=== PATIENT | male | born 1950 | race Hispanic/Latino ===

== ENCOUNTER → 2022-03-15 13:00 | Outpatient (CLI) | payer MEDICARE, SELFPAY ==
[2022-03-15 15:08] LABS: Prostate Specific Antigen < 0.064 ng/mL (0.10-4.00)
== END ==
PROVIDERS: Referring Provider Urology; Visit Provider Urology
DX: R30.0 Dysuria (principal); R33.9 Retention of urine, unspecified; R82.81 Pyuria; Z85.46 Personal history of malignant neoplasm of prostate; Z90.79 Acquired absence of other genital organ(s); Z77.22 Contact with and (suspected) exposure to environmental tobacco smoke (acute) (chronic); Z87.898 Personal history of other specified conditions
CPT/HCPCS: 36415; 51798; 81002; 84153; 87077; 87086; 87186; 99214

== ENCOUNTER → 2022-04-27 09:15 | Outpatient (CLI) | payer MEDICARE, SELFPAY | PROVIDERS: Visit Provider Urology | DX: R30.0 Dysuria (principal) | CPT/HCPCS: 87077; 87086; 87185; 87186 ==

== ENCOUNTER 2022-05-18 11:19 | Day surgery (SDC) | payer MEDICARE, SELFPAY ==
[2022-05-18] VITALS (7 sets, daily range): BP systolic 110–167; BP diastolic 66–78; PULSE 64–72; RESP 14–17; TEMP 36.3–36.6; O2SAT 96–99; BMI 30.9
--- NOTE | 2022-05-18 13:52 | SUR.OPER ---
Supine on padded OR bed, head on pillow, arms secured on padded arm boards at <90 degrees abduction, legs uncrossed, safety belt at thigh, tape over blanket over lower legs.
--- NOTE | 2022-05-18 13:56 | PM.PREOP ---
Pre-operative Note COVID-19 COVID-19 status: Negative Result date/Date tested (Pos, Neg/Pending): 05/15/22 Criteria for continued procedure: Delay expected to result in less-positive ultimate med/surg outcome and Non-surgical alternatives not available or appropriate per current SOC Interval Note History & Physical reviewed/Exam performed by Physician: Yes Changes to H&P: No
[2022-05-18] MEDS: AMPICILLIN/SULBACTAM 3 GM 3 GM in SODIUM CHLORIDE 0.9% 100 ML IV (14:05)
--- NOTE | 2022-05-18 14:48 | PM.OP.1 ---
Procedure & Clinicians Procedure: Cystoscopy with bladder neck dilation and and direct vision transurethral incision of bladder neck with placement of Veronica catheter over wire. Same procedure as scheduled: Yes Indications: Is a very pleasant gentleman who had a radical prostate[place]. He has now developed obstructive complaints and was found to have a very tight anastomotic and or bladder neck contracture. He presents this time to open the bladder neck up. Surgeon: Ronn Yun Click Yes if Unassisted: Yes Anesthesia Type: General Operative Notes Findings: Findings: Urethra normal to the anastomosis. Prostate is surgically absent at the anastomosis there is a very tight rigid bladder neck contracture. Within the bladder there was severe trabeculation cellules and small diverticula. Ureteral orifices were not observed. There were no mucosal lesions or tumors noted. A 20 [place] 5 cc [place] tip catheter was left in place with 10 cc in the balloon. Closure Type: not applicable Specimen(s): none sent Applied: catheter (Twenty [place] tip catheter) Estimated Blood Loss (mL): 5 Blood products transfused: none Procedure in detail: Procedure in detail: After informed consent was obtained, the patient was identified, and brought to the operating room. Patient was then placed in a supine position on the table for anesthesia was induced to maintain. After ensuring an adequate level of anesthesia the patient was transitioned to the lithotomy position where he was prepped, draped and prepared for transurethral procedure. After prepping draping and assuring an adequate level anesthesia as well as time-out a 21 [place] cystoscope was passed through the urethra into the level of the anastomotic stricture. An Amplatz Ultra Stiff guidewire was then passed through the narrowing and curled within the bladder. The scope was then backed out and Cook S dilators were used in a coaxial fashion over the wire to dilate the anastomosis from 12-20 [place]. With this done attempt was made to pass the cystoscope it would not pass through the contracture. The direct vision urethra tome was then loaded onto the wire and advanced to the level of the anastomotic contracture and scar tissue which was incised at the 12:00 p.m. until the scope passed easily into the bladder. Once in the bladder cystoscopy was performed. The scope was backed out the wire was left in place. A and the [place] tip catheter was passed over the wire and [place] catheter into the bladder with the balloon was filled with 10 cc of sterile water and the catheter was placed to gravity drainage the [place] catheter and the wire were removed. The patient was then awakened having tolerated the procedure well, there were no complications the patient will be transferred to the postanesthesia care unit. Complications: none Post-operative Condition: stable Disposition: PACU Plan for aftercare: Patient to be discharged to home to follow-up of to my office in approximately 10-14 days. He will then be back in approximately and another 7-10 days for cystoscopy and catheter removal.
--- NOTE | 2022-05-18 15:41 | SUR.PHASEII ---
1530: Pt &Ox4, denies any distress and ready to discharge home. Instructions reviewed with patient and son, demonstration of changing rivera from bed bag to leg bag, leg bag draining well, urine light pink tinge. Pt left unit with all personal belongings via w/c to ER exit where son will transport pt home.
== END 2022-05-18 15:35 | disposition home or self-care (01) ==
PROVIDERS: Referring Provider Urology; Visit Provider Urology
PROC: 0TBC8ZZ Excision of Bladder Neck, Via Natural or Artificial Opening Endoscopic (ICD-10-PCS; CPT 52500; principal; 2022-05-18 13:15)
DX: N32.0 Bladder-neck obstruction (principal); N32.89 Other specified disorders of bladder; N32.3 Diverticulum of bladder; R33.9 Retention of urine, unspecified; I10 Essential (primary) hypertension; Z85.46 Personal history of malignant neoplasm of prostate; Z90.79 Acquired absence of other genital organ(s); N99.89 Other postprocedural complications and disorders of genitourinary system; Z77.22 Contact with and (suspected) exposure to environmental tobacco smoke (acute) (chronic)
CPT/HCPCS: 51040; 52281; 82962; J0295; J1100; J1885; J2250; J2405; J2704; J3010

== ENCOUNTER → 2022-07-12 14:34 | Outpatient (CLI) | payer MEDICARE, SELFPAY | PROVIDERS: Visit Provider Urology | DX: R33.9 Retention of urine, unspecified (principal); N99.89 Other postprocedural complications and disorders of genitourinary system; N39.3 Stress incontinence (female) (male); N32.0 Bladder-neck obstruction; Z85.46 Personal history of malignant neoplasm of prostate; Z90.79 Acquired absence of other genital organ(s); R82.81 Pyuria; R31.29 Other microscopic hematuria | CPT/HCPCS: 81002; 87077; 87086; 87186 ==

== ENCOUNTER → 2022-09-12 10:49 | Outpatient (CLI) | payer MEDICARE, SELFPAY | PROVIDERS: Visit Provider Urology | DX: N99.89 Other postprocedural complications and disorders of genitourinary system (principal); R31.29 Other microscopic hematuria; N32.0 Bladder-neck obstruction; N39.3 Stress incontinence (female) (male); R33.9 Retention of urine, unspecified; R82.81 Pyuria; Z85.46 Personal history of malignant neoplasm of prostate; Z87.440 Personal history of urinary (tract) infections; Z90.79 Acquired absence of other genital organ(s) | CPT/HCPCS: 51798; 81002; 87077; 87086; 87186; 99214 ==

== ENCOUNTER → 2023-03-28 14:18 | Outpatient (CLI) | payer MEDICARE, SELFPAY ==
[2023-03-28 15:06] LABS: BUN Creatinine Ratio 13.2 (6-22); Blood Urea Nitrogen 15 mg/dL (9-20); Calcium 8.9 mg/dL (8.4-10.2); Carbon Dioxide 31 mmol/L (22-32); Chloride 102 mmol/L (98-107); Estimated Glomerular Filt Rate > 60 mL/min (>60); Glucose 149 mg/dL (80-110); HEMOLYSIS < 15 (0-50); Potassium 4.1 mmol/L (3.4-5.1); Sodium 141 mmol/L (137-145)
== END ==
PROVIDERS: Referring Provider Urology; Visit Provider Urology
DX: N32.0 Bladder-neck obstruction (principal); N39.3 Stress incontinence (female) (male); R31.29 Other microscopic hematuria; R33.9 Retention of urine, unspecified; N99.89 Other postprocedural complications and disorders of genitourinary system; Z85.46 Personal history of malignant neoplasm of prostate; Z90.79 Acquired absence of other genital organ(s); Z77.22 Contact with and (suspected) exposure to environmental tobacco smoke (acute) (chronic)
CPT/HCPCS: 36415; 51798; 80048; 81002; 87086; 99214

== ENCOUNTER → 2023-04-05 11:35 | Outpatient (CLI) | payer MEDICARE, SELFPAY ==
--- NOTE | 2023-04-05 | DI.CT.S_ITS ---
PROCEDURE: CT IVP A/P W/WO INDICATIONS: Other microscopic hematuria TECHNIQUE: Optional 5 mm thick noncontrast images acquired from the diaphragm to the symphysis pubis. After the administration of intravenous contrast, 5 mm thick images acquired from the diaphragm to the symphysis pubis after a 10-minute delay. 2 mm thick coronal and sagittal reformats were then performed of the kidneys and ureters. For radiation dose reduction, the following was used: automated exposure control, adjustment of mA and/or kV according to patient size. COMPARISON: None. FINDINGS: Image quality: Excellent. Lung bases: Lung bases are clear. Heart size is normal. Urinary system: Both kidneys are normal in size, without hydronephrosis or nephrolithiasis on pre-contrast images. No perinephric fat stranding. Bilateral renal cystic lesions, most of which contain minimal to no internal complexity. Along the posterior/lateral margin of the left kidney, there is a 9.3 cm cystic lesion with mildly thickened internal septations but no definite nodularity. There is normal bilateral renal enhancement. Renal calyces appear normal in morphology when filled with contrast. Opacified portions of both ureters demonstrate normal caliber. Trabeculated bladder wall. Liver: No solid mass. Cystic lesions are present. Gallbladder: No gallstones or biliary dilation. Spleen: Normal size. Pancreas: No ductal dilation. Adrenal glands: No adrenal nodules. Peritoneum and bowel: Bowel loops demonstrate normal wall thickness and caliber. No free fluid or air. Nodes and vessels: No retroperitoneal or mesenteric adenopathy by size criteria. Aorta and inferior vena cava are normal in size. Abdominal wall: Fat containing umbilical hernia. Pelvis: No pathologic free pelvic fluid. Left inguinal hernia containing a short segment nonobstructed large bowel. prostatectomy. Bones: No suspicious bony lesions. No vertebral body compression fractures. IMPRESSION: No nephrolithiasis or filling defects within the opacified renal collecting system or ureters. Trabeculated bladder wall. Bladder mass difficult to exclude in this setting. Consider direct visualization with cystoscopy. 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 Recommend six-month follow-up with single phase contrast CT or MRI (renal mass protocol). Left inguinal hernia containing a short segment of nonobstructed large bowel. Dictated by: Ovidio Hagan M.D. on 04/05/2023 at 13:57 Approved by: Ovidio Hagan M.D. on 04/05/2023 at 14:06
== END ==
PROVIDERS: Referring Provider Urology; Visit Provider Urology
DX: R31.29 Other microscopic hematuria (principal); Z85.46 Personal history of malignant neoplasm of prostate; N28.89 Other specified disorders of kidney and ureter; K40.90 Unilateral inguinal hernia, without obstruction or gangrene, not specified as recurrent
CPT/HCPCS: 74178

== ENCOUNTER → 2023-11-13 13:42 | Outpatient (CLI) | payer MEDICARE, SELFPAY ==
--- NOTE | 2023-11-13 13:44 | DI.CT.S_ITS ---
PROCEDURE: CT ABDOMEN RENAL PROTOCOL INDICATIONS: Follow-up Bosniak 2 F cyst TECHNIQUE: Optional 5 mm thick noncontrast images acquired from the diaphragm to the iliac crests. After the administration of intravenous contrast, 5 mm thick images again acquired from the diaphragm to the iliac crests in the arterial and urographic phases. 5 mm thick coronal and sagittal reformats were then acquired. For radiation dose reduction, the following was used: automated exposure control, adjustment of mA and/or kV according to patient size. COMPARISON: [facility], CT, CT IVP A/P W/WO, 04/05/2023, 11:50. FINDINGS: Image quality: Diagnostic. Kidneys and Ureters: Stable left-sided renal cyst with mildly thickened internal septations and wall. The cyst measures up to 9.6 cm, unchanged from prior. Additional large bilateral renal cysts with no significant internal complexity. OTHER: Lower chest: Moderate hiatal hernia, with fluid in the distal esophagus; findings suggestive of reflux. Liver: No solid mass. Stable hepatic cysts. Gallbladder: No radiopaque gallstones or wall thickening. Biliary ducts: No biliary dilation. Pancreas: No ductal dilation. Spleen: Size is within normal limits. Adrenal Glands: No adrenal nodules. Stomach and Bowel: Normal colonic caliber, without significant wall thickening. Peritoneum: No abnormal intraperitoneal fluid. No free air. Ventral Wall: No hernia. Abdominal Nodes: No retroperitoneal or mesenteric adenopathy by size criteria. Vessels: Aorta and inferior vena cava are normal in size. Bones: No aggressive osseous abnormality. IMPRESSION: Stable left Bosniak 2 F cystic mass. Follow-up according to ordering provider's discretion. Dictated by: Ovidio Hagan M.D. on 11/13/2023 at 16:22 Approved by: Ovidio Hagan M.D. on 11/13/2023 at 16:27
[2023-11-13 14:11] LABS: BUN Creatinine Ratio 17.6 (6-22); Blood Urea Nitrogen 18 mg/dL (9-20); Estimated Glomerular Filt Rate > 60 mL/min (>60)
== END ==
LOC: CT 13:43
PROVIDERS: Referring Provider Urology; Visit Provider Urology
DX: N28.1 Cyst of kidney, acquired (principal)
CPT/HCPCS: 36415; 74170; 82565; 84520; Q9967

== ENCOUNTER → 2024-12-14 11:12 | Outpatient (CLI) | payer MEDICARE, SELFPAY ==
[2024-12-14 11:57] LABS: BUN Creatinine Ratio 21.8 (6-22); Blood Urea Nitrogen 24 mg/dL (9-20); Calcium 9.4 mg/dL (8.4-10.2); Carbon Dioxide 26 mmol/L (22-32); Chloride 105 mmol/L (98-107); Estimated Glomerular Filt Rate > 60 mL/min (>60); Glucose 106 mg/dL (80-110); HEMOLYSIS < 15 (0-50); Potassium 4.2 mmol/L (3.4-5.1); Sodium 141 mmol/L (137-145)
[2024-12-14 12:30] LABS: Prostate Specific Antigen < 0.064 ng/mL (0.10-4.00)
== END ==
PROVIDERS: Referring Provider Urology; Visit Provider Urology
DX: Z85.46 Personal history of malignant neoplasm of prostate (principal); N28.1 Cyst of kidney, acquired
CPT/HCPCS: 36415; 80048; 84153

== ENCOUNTER → 2024-12-14 12:33 | Outpatient (CLI) | payer MEDICARE, SELFPAY ==
--- NOTE | 2024-12-14 12:34 | DI.CT.S_ITS ---
PROCEDURE: CT ABDOMEN RENAL PROTOCOL INDICATIONS: FOLLOW UP RENAL LESION TECHNIQUE: Optional 5 mm thick noncontrast images acquired from the diaphragm to the iliac crests. After the administration of intravenous contrast, 5 mm thick images again acquired from the diaphragm to the iliac crests in the arterial and urographic phases. 5 mm thick coronal and sagittal reformats were then acquired. For radiation dose reduction, the following was used: automated exposure control, adjustment of mA and/or kV according to patient size. COMPARISON: [facility], CT, CT IVP A/P W/WO, 04/05/2023, 11:50. [facility], CT, CT ABDOMEN RENAL PROTOCOL, 11/13/2023, 14:27. FINDINGS: Image quality: Diagnostic. Kidneys and Ureters: No hydronephrosis. No solid mass. No complex renal cystic lesion which requires follow up. Several benign cysts bilaterally. Largest on the right measures 10.5 cm. Largest on the left measures 9.5 cm. Mid left kidney cyst with thin septation or cyst cluster measuring 5.1 cm, (), unchanged since 2022. No filling defect in the opacified portions of the collecting system. OTHER: Lower chest: Unremarkable. Liver: No solid mass. Several small cysts. Gallbladder: No radiopaque gallstones or wall thickening. Biliary ducts: No biliary dilation. Pancreas: No ductal dilation. Spleen: Size is within normal limits. Adrenal Glands: No adrenal nodules. Stomach and Bowel: Normal colonic caliber, without significant wall thickening. Peritoneum: No abnormal intraperitoneal fluid. No free air. Ventral Wall: No hernia. Abdominal Nodes: No retroperitoneal or mesenteric adenopathy by size criteria. Vessels: Aorta and inferior vena cava are normal in size. Bones: No aggressive osseous abnormality. Mild height loss at L4 is unchanged. IMPRESSION: 1. No solid renal mass. 2. Mid left kidney cyst with thin septations or cyst cluster measuring 5.1 cm is unchanged since 2022. Follow-up imaging could be considered. 3. No kidney stones. No hydronephrosis. Dictated by: Piter Cm M.D. on 12/14/2024 at 18:23 Approved by: Piter Cm M.D. on 12/14/2024 at 18:35
== END ==
PROVIDERS: Referring Provider Urology; Visit Provider Urology
DX: N28.1 Cyst of kidney, acquired (principal); Z85.46 Personal history of malignant neoplasm of prostate; K76.89 Other specified diseases of liver
CPT/HCPCS: 36415; 74170; 80048; 84153; Q9967

== ENCOUNTER → 2024-12-22 14:45 | Outpatient (CLI) | payer MEDICARE, SELFPAY | PROVIDERS: Visit Provider Urology | DX: R33.9 Retention of urine, unspecified (principal); R31.29 Other microscopic hematuria | CPT/HCPCS: 87077; 87086 ==